=== PATIENT | female | born 1955 | race Caucasian/White ===

== ENCOUNTER 2017-06-30 04:40 | Outpatient (CLI) | payer MEDICAID, SELFPAY | END 2017-06-30 23:59 | disposition home or self-care (01) | LOC: DIABETIC 04:40 | PROVIDERS: ATTEND Student in an Organized Health Care Education/Training Program | DX: K90.0 Celiac disease (principal) | CPT/HCPCS: 97802 ==

== ENCOUNTER 2018-02-15 09:32 | Outpatient (CLI) | payer BC ==
[2018-02-15] VITALS (17 sets, daily range): BP systolic 115–145; BP diastolic 49–92
== END 2018-02-15 23:59 | disposition home or self-care (01) ==
LOC: CARD DIAG 09:32
PROVIDERS: ATTEND Physician Assistant
DX: R55 Syncope and collapse (principal); Z87.891 Personal history of nicotine dependence
CPT/HCPCS: 93660

== ENCOUNTER 2024-12-26 12:32 | Emergency (ER) | payer MEDICARE, MEDICAID ==
[~2024-12-26] VITALS: Ht 152.4 cm; Wt 44.5 kg
[2024-12-26 12:51] VITALS: TEMP 97.5
--- NOTE | 2024-12-26 14:33 | RADIOLOGY REPORT ---
CLINICAL INFORMATION: Fall injury. TECHNIQUE: Axial imaging was obtained through the brain without contrast. Coronal and sagittal reformatted images were obtained, reviewed, and stored. Images were reviewed in brain and bone windows. All CT scans at this medical facility are performed using dose modulation techniques as appropriate to a performed exam including the following: Automated exposure control was utilized; adjustment of the MA and/or KV according to patient size; and use of iterative reconstruction technique. CTDIvol = 36.9 mGy DLP = 627.38 mGy-cm COMPARISON: None FINDINGS: There is no acute intracranial hemorrhage. No mass effect or midline shift. Scattered areas of hypoattenuation are seen in the periventricular and subcortical white matter, which are nonspecific but most likely sequelae of small vessel ischemic disease. Atrophic changes with dilation of the ventricles and widening of the sulci. Basal cisterns are patent. There is prominent bilateral basal ganglia calcification and calcification of the cerebellar dentate nuclei. There is milder calcification in the subcortical white matter. The calvarium is unremarkable. Paranasal sinuses and mastoid air cells are clear. IMPRESSION: 1. No CT evidence of acute intracranial abnormality. 2. Nonacute findings as described above. 3. Prominent calcification in the bilateral basal ganglia, cerebellar dentate nuclei, and, to a lesser extent the subcortical white matter, may be seen with far disease in the appropriate clinical setting.
--- NOTE | 2024-12-26 14:42 | RADIOLOGY REPORT ---
EXAM: CT CT CERVICAL SPINE HISTORY: Fall with pain. COMPARISON: CT CT HEAD on DOS: 12/26/24 CTDIvol 9.95 mGy, DLP 185.24 mGy*cm. TECHNIQUE: Multiple axial CT images of the spine were obtained using bone algorithm. Axial and coronal reformatting was done. Bone and soft tissue windows were reviewed. FINDINGS: No evidence of definite acute fracture, spinal dislocation, or significant appearing acute subluxation is seen. 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 Central canal appears widely patent. IMPRESSION: No acute abnormality.
[2024-12-26 17:09] VITALS: PULSE 75
--- NOTE | 2024-12-26 17:55 | Physician Documentation ---
History of Present Illness ~ Chief Complaint: Mechanical Fall Stated Complaint: FALL HEAD LAC NO THINNERS Time Seen by MD: 17:34 HPI 69-YEAR-OLD FEMALE PRESENTS TO THE ED AFTER HAVING A FALL YESTERDAY EVENING. SHE IS AT HER COGNITIVE BASELINE AND HAS A GOOD RECOLLECTION OF THE EVENT. SAYS THAT THE FALL WAS JUST A MISSTEP AND THIS IS AN ISOLATED EVENT. DENIES ANY URINARY SYMPTOMS. HER CAREGIVER AND NIECE IS AT BEDSIDE WELL DENIES ANY LIGHT SENSITIVITY LOSS OF CONSCIOUSNESS OR ANY NEUROLOGIC DEFICITS THE PATIENT HAS A PRE-EXISTING DIAGNOSIS OF FAHRS, WHERE SHE HAS EXCESSIVE CALCIUM DEPOSITS IN HER BRAIN Day of Fall: Dec 26, 2024 Tetanus within 5 Years?: No Medication Reconciliation Allergies: Coded Allergies: Sulfa (Sulfonamide Antibiotics) (Verified Allergy, Mild, RASH, 12/26/24) Review of Systems All Other Systems at this time: Reviewed and Negative ROS As stated above in the HPI, otherwise all systems are reviewed and negative. Physical Exam Vital Signs: Temperature: 97.5, Source: Temporal, Heart Rate: 75, Respiratory Rate: 16, BP: 112/55, Pulse Oximetry: 99, Weight: 44.500 Oxygen Flow Rate: 0 Physical Exam General: Alert, no apparent distress. HEENT: PERRL, EOMI, no injection, moist mucous membranes.SMAL LACERATION ON THE RIGHT SIDE OF THE FOREHEAD PROXIMALLY 1-1/2 CM Neck: Full range of motion. Respiratory: Lungs clear, no respiratory distress. Cardiovascular: Regular rate and rhythm, no murmurs. Neurologic: Oriented x4. Psychiatric: Normal mood and affect. Skin: Normal color, warm and dry. No edema, no ecchymosis. Progress Results/Orders Results/Orders Vital Signs 12/26/24 12/26/24 12/26/24 12/26/24 12:51 17:05 17:09 17:58 Temp 97.5 Pulse 80 75 Resp 16 16 16 16 B/P (MAP) 108/60 112/55 (74) 103/64 Pulse Ox 100 99 98 O2 Flow Rate 0 0 Medical Decision Making Findings I OFFERED TO DO FURTHER TESTING VIA LABORATORY VALUES TO RULE OUT URINARY TRACT INFECTION. HOWEVER THE PATIENT DOES NOT PRESENT WITH ANY SIGNS OF METABOLIC ENCEPHALOPATHY SECONDARY TO UTI. EXCELLENT HISTORIAN AND VERY APPROPRIATE TO THE SITUATION. HEMODYNAMICALLY STABLE. DECIDED THROUGH SHARED DECISION-MAKING THAT WE WILL DISCHARGE HER CONSIDERING THIS WAS AN ISOLATED EVENT AND SHE REMAINS ASYMPTOMATIC. SHE HAS A GOOD SAFETY PLAN WITH HER CAREGIVER THEREFORE WE WILL DISCHARGE HER NOW Differential Dx:Considerations: Include: Closed head injury, Cardiac injury, Fracture(s), Intraabdominal injury, Pneumothorax, Cerebral contusion, Pulmonary contusion, Spine injury, Tracheal injury, Urological injury, Vascular injury, Abrasion(s), Contusion(s), Foreign body(s), Hematoma(s), Laceration(s), Encephalopathy, Other Departure Disposition: 01 HOME / SELF CARE / HOMELESS Impression: Primary Impression: Fall Discharge Instructions: Fall Prevention in the Home, Adult, [id number] Referrals: NO PRIMARY CARE PROVIDER (PCP) Signature Scribe Signature: f Attestation: Scribed for Juan Garcia Np by Juan Hendrickson NP . 12/26/24 23:09 JUAN GARCIA NP Dec 26, 2024 17:55
[2024-12-26 17:58] VITALS: BP 103/64; RESP 16; O2SAT 98
== END 2024-12-26 18:05 | disposition home or self-care (01) ==
LOC: ER 12:33
DX: S01.81XA Laceration without foreign body of other part of head, initial encounter (principal); Z88.2 Allergy status to sulfonamides; W18.39XA Other fall on same level, initial encounter; Y93.89 Activity, other specified; Y92.89 Other specified places as the place of occurrence of the external cause; Y99.8 Other external cause status
CPT/HCPCS: 70450; 72125; 99284